=== PATIENT | female | born 1965 | race African-American/Black ===

== ENCOUNTER 2019-07-14 07:33 | Emergency (ER) | payer MEDICAID ==
[~2019-07-14] VITALS: Ht 177.8 cm; Wt 88.0 kg
[2019-07-14] MEDS ORDERED: SODIUM CHLORIDE 0.9% 1,000 ML IV ONE (07:44)
[2019-07-14] MEDS ORDERED: FAMOTIDINE 20MG/2ML VIAL IV STA (07:44)
[2019-07-14] MEDS ORDERED: ONDANSETRON HCL 4MG/2ML INJ IV STA (07:44)
[2019-07-14] MEDS ORDERED: MORPHINE SULFATE 4 MG/ML CPJ (NOT FOR IM USE) IV ONE (08:00)
[2019-07-14 09:21] LABS: HEMATOCRIT. 47.3 % (36.0-48.0); HEMOGLOBIN. 16.5 g/dL (12.0-16.0); MEAN CORPUSCULAR HEMOGLOBIN 34.2 pg (28.0-32.0); MEAN CORPUSCULAR VOLUME 97.9 fL (81.0-99.0); RED BLOOD CELL COUNT 4.83 mill/uL (4.2-5.4); RED CELL DISTRIBUTION WIDTH 14.3 % (11.6-14.6)
[2019-07-14 09:28] LABS: PROTHROMBIN TIME 10.7 sec (9.6-11.0)
[2019-07-14 09:30] LABS: CHLORIDE 105 mEq/L (98-107)
[2019-07-14 09:35] LABS: ETHANOL BLOOD < 10 mg/dL
[2019-07-14 09:59] LABS: PLATELET ESTIMATE NORMAL
[2019-07-14 10:01] LABS: PLATELET 311 x1000/uL (130-400)
[2019-07-14 10:16] LABS: CLARITY URINE CLOUDY (CLEAR); COLOR URINE YELLOW (YELLOW); KETONES URINE 4+ (NEGATIVE); LEUKOCYTE ESTERASE URINE 1+ (NEGATIVE); NITRITE URINE NEGATIVE (NEGATIVE); OCCULT BLOOD URINE TRACE (NEGATIVE); PH URINE 7.5 (4.5-8.0); PROTEIN URINE 2+ (NEGATIVE); SPECIFIC GRAVITY URINE 1.021 (1.005-1.030)
[2019-07-14] MEDS ORDERED: LEVOFLOXACIN 500MG PREMIX 100 ML IV ONE (10:30)
[2019-07-14] MEDS ORDERED: SODIUM CHLORIDE 0.9% 1000ML BAG (SEPSIS BOLUS) IV ONE (10:30)
[2019-07-14] MEDS ORDERED: METRONIDAZOLE 500 MG PREMIX 100 ML IV ONE (10:30)
[2019-07-14 11:09] LABS: *AMPHETAMINES SCREEN URINE NEGATIVE (NEGATIVE); *BARBITURATES SCREEN URINE NEGATIVE (NEGATIVE); *BENZODIAZEPINES SCREEN URINE NEGATIVE (NEGATIVE); *COCAINE SCREEN URINE NEGATIVE (NEGATIVE)
[2019-07-14 11:10] LABS: CANNABINOID URINE SCREEN PRESUMTIVE POSITIVE (NEGATIVE); METHADONE URINE SCREEN NEGATIVE (NEGATIVE); OPIATES URINE SCREEN NEGATIVE (NEGATIVE); PHENCYCLIDINE URINE SCREEN NEGATIVE (NEGATIVE)
[2019-07-14 13:35] VITALS: BP 127/60
[2019-07-14] MEDS ORDERED: ONDANSETRON HCL 4MG/2ML INJ IV ONE (13:45)
[2019-07-17] MEDS ORDERED: DORZ10DR17 OP (12:26)
[2019-07-17] MEDS ORDERED: DORZ10DR9 RIGHTEYE (12:26)
== END 2019-07-14 14:25 | disposition short-term general hospital (02) ==
LOC: ER 08:21 → EDBEDREQ 10:29 → CANBEDREQ 12:50 → ER 14:25
DX: A41.9 Sepsis, unspecified organism (principal); N39.0 Urinary tract infection, site not specified; R11.2 Nausea with vomiting, unspecified
CPT/HCPCS: 36415; 71045; 74176; 80053; 80305; 80320; 81003; 83605; 83690; 84484; 85025; 85610; 87040; 87077; 87086; 87186; 93005; 96361; 96365; 96367; 96375; 96376; 99291; J1956; J2270; J2405; J3490; J7030; G0480

== ENCOUNTER 2020-06-18 17:17 | Emergency (ER) | payer MEDICAID ==
[~2020-06-18] VITALS: Ht 167.6 cm; Wt 64.0 kg
[~2020-06-18 17:17] MED LIST: DORZ10DR17 OP; DORZ10DR9 RIGHTEYE
[2020-06-18] MEDS ORDERED: FAMOTIDINE 20MG/2ML VIAL IV STA (18:12)
[2020-06-18] MEDS ORDERED: ONDANSETRON HCL 4MG/2ML INJ IV STA (18:12)
[2020-06-18] MEDS ORDERED: SODIUM CHLORIDE 0.9% 1,000 ML IV ONE (18:15)
[2020-06-18 19:01] LABS: HEMATOCRIT. 48.8 % (36.0-48.0); HEMOGLOBIN. 16.4 g/dL (12.0-16.0); MEAN CORPUSCULAR HEMOGLOBIN 34.1 pg (28.0-32.0); MEAN CORPUSCULAR VOLUME 101.1 fL (81.0-99.0); MEAN PLATELET VOLUME 8.8 fl (7.4-10.4); PLATELET 303 x1000/uL (130-400); RED BLOOD CELL COUNT 4.82 mill/uL (4.2-5.4); RED CELL DISTRIBUTION WIDTH 13.3 % (11.6-14.6)
[2020-06-18 19:04] LABS: CHLORIDE 102 mEq/L (98-107)
[2020-06-18 19:08] LABS: PROTHROMBIN TIME 10.8 sec (9.6-11.0)
[2020-06-18 19:24] LABS: PLATELET ESTIMATE NORMAL
[2020-06-18 21:55] LABS: CLARITY URINE CLEAR (CLEAR); COLOR URINE DARK YELLOW (YELLOW); KETONES URINE 2+ (NEGATIVE); LEUKOCYTE ESTERASE URINE 2+ (NEGATIVE); NITRITE URINE NEGATIVE (NEGATIVE); OCCULT BLOOD URINE NEGATIVE (NEGATIVE); PH URINE 6.5 (4.5-8.0); PROTEIN URINE 1+ (NEGATIVE); SPECIFIC GRAVITY URINE 1.027 (1.005-1.030)
[2020-06-18] MEDS ORDERED: CEFTRIAXONE 1 G PREMIX 50 ML IV ONE (22:00)
[2020-06-18] MEDS ORDERED: METRONIDAZOLE 500MG TABLET PO SCH (22:30)
[2020-06-18] MEDS ORDERED: CEPH500T MT (22:40)
[2020-06-18] MEDS ORDERED: ACETAMINOPHEN 325MG TABLET PO ONE (23:00)
[2020-06-18 23:06] VITALS: BP 131/78
== END 2020-06-18 23:07 | disposition home or self-care (01) ==
LOC: ER 17:17
DX: N39.0 Urinary tract infection, site not specified (principal); R11.2 Nausea with vomiting, unspecified; K76.0 Fatty (change of) liver, not elsewhere classified
CPT/HCPCS: 36415; 76705; 80053; 81003; 83690; 84484; 85025; 85610; 93005; 96374; 96375; 99285; J0696; J2405; J3490; J7030

== ENCOUNTER 2020-09-04 07:49 | Emergency (ER) | payer MEDICAID ==
[~2020-09-04] VITALS: Ht 167.6 cm; Wt 69.0 kg
[~2020-09-04 07:49] MED LIST changes: +CEPH500T MT
[2020-09-04] MEDS ORDERED: FAMOTIDINE 20MG/2ML VIAL IV STA (08:10)
[2020-09-04] MEDS ORDERED: ONDANSETRON HCL 4MG/2ML INJ IV STA (08:10)
[2020-09-04] MEDS ORDERED: SODIUM CHLORIDE 0.9% 1,000 ML IV ONE ×2 (08:15→10:00)
[2020-09-04 08:41] LABS: HEMOGLOBIN. 17.1 g/dL (12.0-16.0); MEAN CORPUSCULAR HEMOGLOBIN 35.6 pg (28.0-32.0); MEAN CORPUSCULAR VOLUME 101.9 fL (81.0-99.0); MEAN PLATELET VOLUME 8.3 fl (7.4-10.4); PLATELET 286 x1000/uL (130-400); RED CELL DISTRIBUTION WIDTH 13.9 % (11.6-14.6)
[2020-09-04 08:48] LABS: CHLORIDE 107 mEq/L (98-107)
[2020-09-04 08:52] LABS: ETHANOL BLOOD < 10 mg/dL
[2020-09-04 08:53] LABS: PROTHROMBIN TIME 10.9 sec (9.6-11.0)
[2020-09-04 09:23] LABS: PLATELET ESTIMATE NORMAL
[2020-09-04] MEDS ORDERED: METOCLOPRAMIDE HCL 10MG/2ML VIAL IV ONE (10:00)
[2020-09-04 10:07] LABS: CLARITY URINE CLEAR (CLEAR); COLOR URINE YELLOW (YELLOW); KETONES URINE 2+ (NEGATIVE); LEUKOCYTE ESTERASE URINE NEGATIVE (NEGATIVE); NITRITE URINE NEGATIVE (NEGATIVE); OCCULT BLOOD URINE NEGATIVE (NEGATIVE); PH URINE 6.5 (4.5-8.0); PROTEIN URINE TRACE (NEGATIVE); SPECIFIC GRAVITY URINE 1.021 (1.005-1.030)
[2020-09-04 10:24] LABS: *BARBITURATES SCREEN URINE NEGATIVE (NEGATIVE); *BENZODIAZEPINES SCREEN URINE NEGATIVE (NEGATIVE); *COCAINE SCREEN URINE NEGATIVE (NEGATIVE)
[2020-09-04 10:25] LABS: *AMPHETAMINES SCREEN URINE NEGATIVE (NEGATIVE); CANNABINOID URINE SCREEN PRESUMTIVE POSITIVE (NEGATIVE); METHADONE URINE SCREEN NEGATIVE (NEGATIVE); OPIATES URINE SCREEN NEGATIVE (NEGATIVE); PHENCYCLIDINE URINE SCREEN NEGATIVE (NEGATIVE)
[2020-09-04] MEDS ORDERED: LORAZEPAM 2MG/ML CPJ IV ONE (12:00)
[2020-09-04] MEDS ORDERED: ONDANSETRON HCL 4MG/2ML INJ IV ONE (15:30)
[2020-09-04 15:40] VITALS: BP 117/71
== END 2020-09-04 15:59 | disposition short-term general hospital (02) ==
LOC: ER 07:49 → CANBEDREQ 15:49 → ER 15:59
DX: R10.13 Epigastric pain (principal); R65.10 Systemic inflammatory response syndrome (SIRS) of non-infectious origin without acute organ dysfunction; R11.2 Nausea with vomiting, unspecified; Z98.890 Other specified postprocedural states
CPT/HCPCS: 36415; 71045; 74176; 80053; 80305; 80320; 81003; 83690; 84484; 85025; 85610; 93005; 96361; 96374; 96375; 96376; 99291; J2060; J2405; J2765; J3490; J7030; Z7610; 99285; G0480